=== PATIENT | female | born 1970 | race Caucasian/White ===

== ENCOUNTER 2016-11-09 13:58 | Inpatient (IN) | payer OTHER ==
[~2016-11-09] VITALS: Ht 167.6 cm; Wt 190.5 kg
--- NOTE | ~2016-11-09 | EKG ---
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
[2016-11-09 13:58] VITALS: BP 156/78
[~2016-11-09 13:58] MED LIST: ACETAMINOPHEN325 M1 PO; ADULT LOW DOSE81 MG PO; ALBUTEROL INH INH; ALLOPURINOL 30300 M1 PO; AZITHROMYCIN 2250 MG PO; BACTRIM DS TAB1 EACH; BACTRIM DS TAB1 EACH PO; CIPROFLOXACIN500 M1 PO; COLACE100 MG PO; DARVOCET-N 1001 EACH PO; FLAGYL500 MG PO; FLEXERIL PO; GLUCOPHAGE1000 MG PO; IBUPROFEN 800800 MG PO; INDOMETHACIN 5050 M1 PO; INDOMETHACIN 5050 MG PO; KEFLEX500 MG PO; LANTUS100 UNIT/M SUBQ; LEVOTHYROXIN0.025 MG; LEVOTHYROXIN0.125 M2 PO; LEVOXYL125 MCG PO; LEVOXYL137 MCG PO; LEVOXYL150 MCG PO; LIPITOR; LIPITOR 10 MG10 M1 PO; LIPITOR 20 MG T20 M1 PO; LISINOPRIL40 MG PO; LORTAB 5-500 T1 EAC1 PO; MACROBID 100 M100 M1 PO; MEDROLDOSEPACK PO; MICRONASE5 MG PO; NAPROSYN500 MG PO; NORCO 5-325 TA1 EACH PO; NORFLEX100 MG PO; NORVASC10 MG PO; ONDANSETRON HCL4 M2 PO; PERCOCET 5-3251 EACH PO; PHENERGAN 25 MG25 MG PO; PRILOSEC40 MG PO; PROAIR HFA8.5 GM IH; PROAIR HFA8.5 GM INH; SKELAXIN 800 M800 M1 PO; TESSALON200 MG PO; ZOFRAN ODT4 M1 PO; ZOFRAN ODT4 MG PO; ZOFRAN4 MG PO; ZPAK PO
[2016-11-09 14:34] LABS: HEMATOCRIT 42.8 % (37.0-47.0); MCH 35.8 pg (26.0-34.0); MCV 102.2 fL (80.0-100.0); PLATELET COUNT 77 thou/uL (150-400); RBC 4.19 mil/uL (4.20-5.00); RDW 13.4 % (10.5-14.5); WBC 12.8 thou/uL (4.0-11.0)
[2016-11-09 14:39] LABS: MANUAL DIFF YES
[2016-11-09 14:47] LABS: ANION GAP 11 mmol/L (7-16); BUN 10 mg/dL (7-18); CALCIUM 9.3 mg/dL (8.5-10.1); CHLORIDE 100 mmol/L (98-107); CO2 24 mmol/L (21-32); GLUCOSE 185 mg/dL (74-106); POTASSIUM 4.3 mmol/L (3.5-5.1); SODIUM 135 mmol/L (136-145)
[2016-11-09 14:58] LABS: ALBUMIN 3.6 g/dL (3.4-5.0); ALKALINE PHOSPHATASE 74 U/L (46-116); NT-PRO BRAIN NAT PEPTIDE 51 pg/mL (<300); SGOT 26 U/L (15-37); SGPT 31 U/L (30-65); TOTAL BILIRUBIN 1.2 mg/dL (<0.1-1.0); TOTAL PROTEIN 7.8 g/dL (6.4-8.2); TROPONIN-I < 0.04 ng/mL (<0.04-0.07)
[2016-11-09 15:01] LABS: ABSOLUTE NEUTROPHILS 11.4 thou/uL (1.4-8.2); PLATELET ESTIMATE DECREASED; TOTAL CELL COUNT 100
[2016-11-09 15:37] LABS: URINE BILIRUBIN NEGATIVE (Negative); URINE BLOOD 2+ (Negative); URINE COLOR YELLOW; URINE GLUCOSE-RANDOM* NEGATIVE (Negative); URINE KETONES NEGATIVE (Negative); URINE NITRITE POSITIVE (Negative); URINE PROTEIN (DIPSTICK) 3+ (Negative); URINE UROBILINOGEN 0.2 E.U./dl (0.2-1.0)
[2016-11-09 15:51] LABS: BACTERIA >30 Many /HPF (None Seen); CASTS None Seen /LPF (None Seen); CRYSTALS None Seen /LPF (None Seen); SQUAMOUS 4-10 Moderate /LPF (0-3); URINE RBC 0-2 Rare /HPF (0-2)
[2016-11-09 17:33] VITALS: BP 153/80
[2016-11-09 20:08] VITALS: BP 136/74
[2016-11-10] VITALS: BP 136/74
[2016-11-10 04:13] VITALS: BP 132/72
[2016-11-10 05:33] LABS: ABSOLUTE NEUTROPHILS 8.3 thou/uL (1.4-8.2); BASOPHILS 0.3 % (0.0-2.0); EOSINOPHILS 0.3 % (0.0-3.0); HEMATOCRIT 38.7 % (37.0-47.0); HEMOGLOBIN 13.7 gm/dL (12.0-15.0); MCH 35.9 pg (26.0-34.0); MCHC 35.2 g/dL (28.0-37.0); MCV 101.8 fL (80.0-100.0); MONOCYTES 6.8 % (1.0-8.0); PLATELET COUNT 70 thou/uL (150-400); POLYS 81.6 % (36.0-66.0); RBC 3.81 mil/uL (4.20-5.00); RDW 13.3 % (10.5-14.5); WBC 10.2 thou/uL (4.0-11.0)
[2016-11-10 05:37] LABS: MANUAL DIFF NO
[2016-11-10 06:04] LABS: CALCIUM 8.8 mg/dL (8.5-10.1); MAGNESIUM 1.3 mg/dL (1.8-2.4); POTASSIUM 3.7 mmol/L (3.5-5.1); TOTAL BILIRUBIN 1.1 mg/dL (<0.1-1.0)
[2016-11-10 08:00] VITALS: BP 117/71
[2016-11-10 16:00] VITALS: BP 110/64
[2016-11-10 20:44] VITALS: BP 140/72
[2016-11-11 03:10] VITALS: BP 123/63
[2016-11-11 05:28] LABS: ABSOLUTE NEUTROPHILS 3.5 thou/uL (1.4-8.2); BASOPHILS 0.7 % (0.0-2.0); HEMATOCRIT 36.7 % (37.0-47.0); LYMPHOCYTES 31.7 % (24.0-44.0); MCH 35.7 pg (26.0-34.0); MCHC 35.4 g/dL (28.0-37.0); MCV 100.9 fL (80.0-100.0); MONOCYTES 9.5 % (1.0-8.0); PLATELET COUNT 71 thou/uL (150-400); POLYS 56.1 % (36.0-66.0); RBC 3.64 mil/uL (4.20-5.00); RDW 13.6 % (10.5-14.5); WBC 6.3 thou/uL (4.0-11.0)
[2016-11-11 05:37] LABS: MANUAL DIFF NO
[2016-11-11 05:43] LABS: ALBUMIN 2.8 g/dL (3.4-5.0); CALCIUM 8.1 mg/dL (8.5-10.1); POTASSIUM 3.7 mmol/L (3.5-5.1); TOTAL BILIRUBIN 0.7 mg/dL (<0.1-1.0); TOTAL PROTEIN 6.7 g/dL (6.4-8.2)
[2016-11-11 07:51] VITALS: BP 137/76
[2016-11-11 15:52] VITALS: BP 143/76
[2016-11-11 19:37] VITALS: BP 139/65
[2016-11-12 04:34] VITALS: BP 131/68
[2016-11-12 05:57] LABS: BASOPHILS 0.9 % (0.0-2.0); EOSINOPHILS 2.3 % (0.0-3.0); HEMATOCRIT 38.4 % (37.0-47.0); HEMOGLOBIN 13.6 gm/dL (12.0-15.0); LYMPHOCYTES 39.9 % (24.0-44.0); MCH 35.6 pg (26.0-34.0); MCHC 35.3 g/dL (28.0-37.0); MCV 100.9 fL (80.0-100.0); MONOCYTES 8.8 % (1.0-8.0); PLATELET COUNT 83 thou/uL (150-400); POLYS 48.1 % (36.0-66.0); RBC 3.81 mil/uL (4.20-5.00); RDW 13.5 % (10.5-14.5); WBC 6.3 thou/uL (4.0-11.0)
[2016-11-12 06:06] LABS: MANUAL DIFF NO
[2016-11-12 06:09] LABS: ALBUMIN 2.9 g/dL (3.4-5.0); POTASSIUM 3.9 mmol/L (3.5-5.1); TOTAL BILIRUBIN 0.8 mg/dL (<0.1-1.0); TOTAL PROTEIN 6.9 g/dL (6.4-8.2)
[2016-11-12 08:42] VITALS: BP 127/70
[2016-11-12 15:20] VITALS: BP 127/48
[2016-11-12 20:00] VITALS: BP 165/91
[2016-11-13 04:00] VITALS: BP 134/81
[2016-11-13 08:00] VITALS: BP 129/61
[2016-11-13 12:50] VITALS: BP 134/81
[2016-11-13] MEDS ORDERED: DIFLUCAN200 MG PO (13:17)
== END 2016-11-13 13:52 | disposition home or self-care (01) | DRG 872 ==
LOC: ER 13:58 → 3N 15:57 → EROBS 15:57 → 3N 17:14
PROVIDERS: Internal Medicine Geriatric Medicine; Nurse Practitioner Family
DX: A41.9 Sepsis, unspecified organism (principal); N39.0 Urinary tract infection, site not specified; Z68.44 Body mass index [BMI] 60.0-69.9, adult; K83.0 Cholangitis; K80.10 Calculus of gallbladder with chronic cholecystitis without obstruction; N12 Tubulo-interstitial nephritis, not specified as acute or chronic; I10 Essential (primary) hypertension; E11.9 Type 2 diabetes mellitus without complications; E66.01 Morbid (severe) obesity due to excess calories; K75.81 Nonalcoholic steatohepatitis (NASH); K74.60 Unspecified cirrhosis of liver; M10.9 Gout, unspecified; D69.6 Thrombocytopenia, unspecified; E03.9 Hypothyroidism, unspecified; J45.909 Unspecified asthma, uncomplicated; Z79.899 Other long term (current) drug therapy; Z88.6 Allergy status to analgesic agent; Z88.1 Allergy status to other antibiotic agents; Z88.0 Allergy status to penicillin; Z79.4 Long term (current) use of insulin; Z87.440 Personal history of urinary (tract) infections; Z87.891 Personal history of nicotine dependence
CPT/HCPCS: 10094

== ENCOUNTER 2017-04-23 12:17 | Emergency (ER) | payer OTHER ==
[~2017-04-23] VITALS: Ht 170.2 cm; Wt 190.5 kg
[~2017-04-23 12:17] MED LIST changes: +DIFLUCAN200 MG PO
[2017-04-23 13:08] LABS: HEMATOCRIT 41.3 % (37.0-47.0); HEMOGLOBIN 14.6 gm/dL (12.0-15.0); MCH 35.8 pg (26.0-34.0); MCHC 35.4 g/dL (28.0-37.0); MCV 101.2 fL (80.0-100.0); RBC 4.08 mil/uL (4.20-5.00); RDW 13.5 % (10.5-14.5); WBC 5.8 thou/uL (4.0-11.0)
[2017-04-23 13:22] LABS: CALCIUM 9.5 mg/dL (8.5-10.1); CREATININE 1.1 mg/dL (0.6-1.0); POTASSIUM 3.8 mmol/L (3.5-5.1)
[2017-04-23] MEDS ORDERED: FLEXERIL PO (14:26)
[2017-04-23] MEDS ORDERED: OXYCODONE HCL 55 MG PO (14:26)
== END 2017-04-23 14:37 | disposition home or self-care (01) ==
LOC: ER 12:17
PROVIDERS: Emergency Medicine
DX: M54.9 Dorsalgia, unspecified (principal); Z04.3 Encounter for examination and observation following other accident; Z87.891 Personal history of nicotine dependence; Z88.5 Allergy status to narcotic agent; Z88.0 Allergy status to penicillin; Z88.1 Allergy status to other antibiotic agents

== ENCOUNTER 2017-07-04 17:49 | Inpatient (IN) | payer OTHER ==
[~2017-07-04] VITALS: Ht 167.6 cm; Wt 197.6 kg
--- NOTE | ~2017-07-04 | EKG ---
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 : 1970 Requested By: Pradip Robledo Order Number: [id number] MD: Dipak Arceo Measurements Intervals [place] Rate: 95 P: 50 MO: 189 QRS: -17 QRSD: 92 T: 94 QT: 347 QTc: 436 Interpretive Statements Sinus rhythm Borderline left axis deviation Low voltage, precordial leads Nonspecific T abnormalities, lateral leads Compared to ECG 11/09/2016 14:30:32 No significant change was found Electronically Signed On 07-05-2017 8:01:02 [facility] by Dipak Arceo [email or web address] <ELECTRONICALLY SIGNED> By: Dipak Arceo MD, [facility] 07/05/17 0801 1754 1754 Dipak Arceo MD, [facility] /EPI
--- NOTE | ~2017-07-04 | 2DMMODE ---
[facility] [address] [employer] [employer] [place] [address] 2 D/M-MODE ECHOCARDIOGRAM Name: [facility]ATALIB [facility] Room #: 428-P [facility] IN .R.#: [id number] Admission: 07/04/17 Attend Phys: Rico Peterson, Discharge: Date of : 72 Date of Service: 07/05/17 1534 Report #: [id number] THIS REPORT FOR: //name// APPROVED REPORT Study performed: 07/05/2017 14:38:28 EXAM: Comprehensive 2D, Doppler, and color-flow Echocardiogram Patient Location: Bedside Room #: 428 Status: routine BSA: 2.75 HR: 83 bpm BP: 149/71 mmHg Other Information Study Quality: Fair Indications Diabetes Chest Pain Hypertension/HDD Morbid obesity. Aortic Valve AoV Peak Kelby.: 1.71 m/s AO Peak Gr.: 11.65 mmHg LVOT Max P.73 mmHg LVOT Max V: 1.09 m/s Mitral Valve E/A Ratio: 1.4 MV Decel. Time: 226.44 ms MV E Max Kelby.: 1.44 m/s MV A Kelby.: 1.00 m/s MV PHT: 65.67 ms IVRT: 69.20 ms Pulmonary Valve PV Peak Kelby.: 1.06 m/s PV Peak Gr.: 4.49 mmHg Pulmonary Vein P Vein S: 0.77 m/s P Vein A: 0.30 m/s P Vein D: 0.71 m/s P Vein A Dur.: 101.5 msec P Vein S/D Ratio: 1.08 [facility] [address] [address] 2 D/M-MODE ECHOCARDIOGRAM Name: JACKSONTALIB Room #: 428-P ADM IN .R.#: [id number] Admission: 07/04/17 Attend Phys: Rico Peterson, Discharge: Date of : 72 Date of Service: 07/05/17 1534 Report #: [id number] Left Ventricle The left ventricle is normal size. Regional wall motion is not well visualized but grossly normal. There is normal left ventricular wall thickness. The left ventricular systolic function is normal. The left ventricular ejection fraction is within the normal range. LVEF is 55-60%. The left ventricular diastolic function is normal. Right Ventricle The right ventricle is normal size. The right ventricular systolic function is normal. Atria The left atrium size is normal. The right atrium size is normal. Aortic Valve The aortic valve is not well visualized. The aortic valve appears normal in structure. No aortic regurgitation is present. There is no aortic valvular stenosis. Mitral Valve The mitral valve is normal in structure. Trace mitral regurgitation. No evidence of mitral valve stenosis. Tricuspid Valve The tricuspid valve is normal in structure. There is no tricuspid valve regurgitation noted. Pulmonic Valve The pulmonary valve is normal in structure. There is no pulmonic valvular regurgitation. Great Vessels The aortic root is normal in size. IVC is not well visualized. Pericardium There is no pericardial effusion. <Conclusion> The left ventricular systolic function is normal. Regional wall motion is not well visualized but grossly normal. LVEF 55-60%. The aortic valve is not well visualized. Grossly normal in structure. No aortic regurgitation or stenosis The mitral valve is normal in structure. Trace mitral [facility] [address] [place] [address] 2 D/M-MODE ECHOCARDIOGRAM Name: TALIB JACKSON [facility] Room #: 428-P ADM IN M.R.#: [id number] Admission: 07/04/17 Attend Phys: Rico Peterson, Discharge: Date of : 72 Date of Service: 07/05/171533 Report #: [id number] regurgitation. Pulmonary artery pressure could not be reliably ascertained There is no pericardial effusion. <ELECTRONICALLY SIGNED> By: Dipak Arceo MD, FACC 07/05/17 1534 33 33 Dipak Arceo MD, FACC /INF
--- NOTE | ~2017-07-04 | HC ---
[facility] [place] [address] CONSULTATION Name: TALIB JACKSON Room #: 428-P DIS IN M.R.#: [id number] Admission: 07/04/17 Attend Phys: Rico Peterson MD Discharge: 07/08/17 Date of : 72 Report #: [id number] THIS REPORT FOR: //name// CC: FAM unknown Rico Peterson The patient of hospitalist, [facility], room 428. HISTORY OF PRESENT ILLNESS: A 47-year-old white female with morbid obesity and multiple medical problems. The patient states she is being treated for a urine infection and blood infection. She is admitted due to nausea and vomiting. 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 There is also a family history of hypothyroidism, occurring in the patient's father. The patient states she has had difficulty with obtaining appropriate levels of thyroid replacement most recently. Over the past months or even years, she has been on 150 mcg of replacement per day, but states that physicians have told her her levels were abnormal, although she does not know any of the numbers. Since admission, the patient was continued on 150 mcg of L-thyroxine generic per day and thyroid function studies have shown a TSH that has been within normal limits, although prior thyroid levels in the patient's chart from several years ago were generally exceedingly abnormal as high as 150 or more. The patient states she takes her thyroid 1 hour prior to eating or drinking anything and does not take it without any conflicting substances such as calcium, iron or vitamins. CURRENT MEDICATIONS: Include atorvastatin, glargine, amlodipine, lisinopril, lispro, levothyroxine as mentioned above, aspirin, pantoprazole, glyburide, allopurinol, acetaminophen, ondansetron, ciprofloxacin and possibly other medication. Otherwise, there is no pertinent thyroid history available. OBJECTIVE: LABORATORY DATA: As above. No free T4 is available, but TSH currently is reported to be 1.61 drawn earlier on this admission. PHYSICAL EXAMINATION: GENERAL: Morbidly obese 47-year-old white female who is somewhat emotionally labile, but in no acute distress. Height is reported to be 5 feet 6 inches, weight 416 pounds. VITAL SIGNS: The patient is afebrile, heart rate 96 and regular, blood pressure 120/80. SKIN: Warm and moist, but slightly doughy. EYES: There is no ophthalmopathy. MUSCULOSKELETAL: The weight is distributed both centrally and peripherally. NECK: The thyroid is slightly enlarged and firm without nodularity or adenopathy and it moves well with deglutition. Deep tendon reflexes are 2+ and [address] [address] CONSULTATION Name: TALIB JACKSON Room #: 428-P [facility] IN M.R.#: [id number] Admission: 07/04/17 Attend Phys: Rico Peterson MD Discharge: 07/08/17 Date of : 72 Report #: [id number] equal bilaterally and the remainder of the exam is euthyroid. ASSESSMENT: Hypothyroidism with the patient apparently having long-term difficulty in control. The patient's thyroid levels, however, are currently apparently within normal limits as documented by normal TSH. PLAN: Would suggest continuing current regimen with 150 mcg of L-thyroxine per day, not taken with any conflicting substances. Would then repeat thyroid function studies at intervals to ensure that the patient's levels remain normal. Thank you very much for this consultation. I will continue to follow the patient with you for treatment of thyroid disease. <ELECTRONICALLY SIGNED> By: Bill Dumont MD 07/08/17 2023 1421 0350 Bill Dumont MD /nt
--- NOTE | ~2017-07-04 | HC ---
[facility] [place] [address] CONSULTATION Name: TALIB DOLAN Room #: 428-P ADM IN M.R.#: [id number] Admission: 07/04/17 Attend Phys: Rico Peterson MD Discharge: Date of : 72 Report #: [id number] THIS REPORT FOR: //name// CC: FAM unknown Rico Peterson DATE OF SERVICE: 07/06/2017 CONSULTATION: Infectious Diseases. HISTORY OF PRESENT ILLNESS: Ms. Dolan is a 47-year-old white female admitted to [facility] on 07/04 complaining of chest pain and back pain. The patient says this was reminiscent of an episode she had a few years ago where she was diagnosed with bacteremia, pyelonephritis and sepsis. These symptoms were associated with nausea, vomiting, fevers and chills. With this last past history and some abnormal laboratory studies, the patient was admitted to the hospital. Infectious Diseases consultation was requested because of positive blood culture. PAST MEDICAL HISTORY: The patient has a history of diabetes with hypertension and hyperlipidemia. She is morbidly obese, weighing approximately 415 pounds. She has lost about 85 pounds in the last year and a half with dietary restriction. Other diagnosis includes gout. ALLERGIES: THE PATIENT NOTES ALLERGY TO PENICILLIN, CEPHALOSPORINS, DOXYCYCLINE, CODEINE AND DILAUDID. FAMILY HISTORY: Noncontributory. SOCIAL HISTORY: The patient is and lives with her . She did smoke cigarettes, but has cut way down. No history of alcohol. No history of injection drugs. The patient does smoke marijuana on occasion. She said she did do drugs, but never by injection during her youth. REVIEW OF SYSTEMS: The patient says she feels much better after being on antibiotics for 48 hours. The fevers have resolved. She no longer has chills, no sweats. The patient continued to have weakness and malaise, but this is improving. The patient denies headache, sinus congestion, drainage, sore throat, trouble swallowing. The patient denies cough, chest pain, shortness of breath. The nausea and vomiting have resolved. Her bowels are moving normally. Her belly pain has resolved. Her back pain has resolved. She has no pain in her extremities. PHYSICAL EXAMINATION: GENERAL: The patient appears her stated age, comfortable, oriented, not in any distress. [address] [address] CONSULTATION Name: TALIB DOLAN ELISABET Room #: 428-P [facility] IN M.R.#: [id number] Admission: 07/04/17 Attend Phys: Rico Peterson MD Discharge: Date of : 72 Report #: [id number] VITAL SIGNS: Show maximum measured temperature of 101.1. She has been afebrile for 24 hours. SKIN: Shows no rash, lesion nor exanthem. ENT: Negative. Oral cavity is normal. NECK: Supple. MENTATION: Appropriate. HEART: Sounds S1, S2. Breath sounds are diminished, but clear. I cannot appreciate any tenderness in the back nor flank. ABDOMEN: Belly is morbidly obese, soft, not tender. Bowel sounds are diminished. EXTREMITIES: Unremarkable. Good condition with obesity, but no venous stasis changes. The skin is intact. LABORATORY STUDIES: The white count was 11.4 on admission, is down to 6.7; hemoglobin 12.7; hematocrit 36%; platelets 66,000. Hemoglobin A1c is 6.8. The electrolytes, BUN, creatinine are normal. Glucose is 165. Liver function tests showed the SGOT is slightly elevated at 54, otherwise unremarkable. Lipase elevated at 508. Troponin was normal. The Radiology Department reports the chest x-ray is clear. CT scan showed cirrhosis of the liver with splenomegaly. There also were many gallstones, but no signs of active inflammation nor obstruction. Echocardiogram was unremarkable with preserved ejection fraction. The microbiology laboratory reports that the urine showed 15-25 white cells and E. coli on culture. This was resistant to ampicillin, Cipro and trimethoprim sulfa. One out of 2 blood cultures growing a gram-negative organism preliminarily identified as a pseudomonas species. SUMMARY: The patient who presents with fairly nonspecific symptoms, but includes fever. She does have some evidence of asymptomatic bacteriuria with a moderately resistant E. coli, but has 1 out of 2 blood cultures which has initially been identified as pseudomonas species. Additional findings include cirrhosis with splenomegaly, associated with slight elevation of the SGOT and low platelet count. At this time, we need to address the bacteremia. Pseudomonas tends to be resistant to the Rocephin, which she is currently receiving. I would like to change this to meropenem 1 gram IV every 8 hours. I would like to obtain followup blood cultures to see if the bacteremia has been persistent. We will wait for the final identification and susceptibility studies from the organism. The meropenem would also cover the E. coli in the urine. The patient does have cirrhosis on CT scan with signs of secondary portal hypertension and hypersplenism. Hepatitis A, B and C titers have been ordered. 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 I would encourage the patient to continue losing weight, possibly can consider more aggressive bariatric surgical procedure for her liver as well as her diabetes, back pain and other issues. The elevated lipase is notable. The patient does not demonstrate symptoms typical of pancreatitis. I would like to repeat the lipase with morning labs. For now, we will change antibiotics to meropenem. Repeat cultures and follow labs. I appreciate the opportunity of input in the care of the patient. I will be happy to follow her through the weekend until Dr. Duval returns on Saturday. Thank you for requesting Infectious Diseases input. <ELECTRONICALLY SIGNED> By: Haris Mchugh MD 07/08/17 0106 0920 2103 Haris Mchugh MD /nt
[~2017-07-04 17:49] MED LIST changes: +OXYCODONE HCL 55 MG PO
[2017-07-04 18:42] LABS: ABSOLUTE NEUTROPHILS 9.9 thou/uL (1.4-8.2); BASOPHILS 0.3 % (0.0-2.0); EOSINOPHILS 0.7 % (0.0-3.0); HEMATOCRIT 41.2 % (37.0-47.0); HEMOGLOBIN 14.4 gm/dL (12.0-15.0); MCH 35.1 pg (26.0-34.0); MCHC 34.8 g/dL (28.0-37.0); MCV 100.8 fL (80.0-100.0); MONOCYTES 4.1 % (1.0-8.0); POLYS 86.9 % (36.0-66.0); RBC 4.09 mil/uL (4.20-5.00); RDW 13.4 % (10.5-14.5); WBC 11.4 thou/uL (4.0-11.0)
[2017-07-04 18:47] LABS: ANION GAP 12 mmol/L (7-16); BUN 13 mg/dL (7-18); CALCIUM 9.5 mg/dL (8.5-10.1); CHLORIDE 101 mmol/L (98-107); CO2 26 mmol/L (21-32); CREATININE 1.1 mg/dL (0.6-1.0); GLUCOSE 218 mg/dL (74-106); POTASSIUM 4.2 mmol/L (3.5-5.1); SODIUM 139 mmol/L (136-145)
[2017-07-04 18:55] LABS: ALBUMIN 3.7 g/dL (3.4-5.0); LIPASE 508 U/L (73-393); SGOT 58 U/L (15-37); SGPT 57 U/L (30-65); TOTAL BILIRUBIN 0.9 mg/dL (<0.1-1.0); TOTAL PROTEIN 8.1 g/dL (6.4-8.2); TROPONIN-I < 0.04 ng/mL (<0.06)
[2017-07-04 19:13] LABS: PLATELET COUNT 80 thou/uL (150-400)
[2017-07-04 19:14] LABS: LARGE PLATELETS RARE
[2017-07-04 21:07] LABS: URINE BILIRUBIN 1+ (Negative); URINE BLOOD 3+ (Negative); URINE CLARITY CLEAR; URINE COLOR YELLOW; URINE GLUCOSE-RANDOM* NEGATIVE (Negative); URINE KETONES TRACE (Negative); URINE LEUKOCYTES-REFLEX NEGATIVE (Negative); URINE PROTEIN (DIPSTICK) 3+ (Negative); URINE SPECIFIC GRAVITY 1.025 (1.005-1.035); URINE UROBILINOGEN 0.2 E.U./dl (0.2-1.0)
[2017-07-04 21:09] LABS: URINE NITRITE-REFLEX POSITIVE (Negative)
[2017-07-04 21:10] LABS: ICTOTEST (BILI CONFIRMATORY) Negative (Negative)
[2017-07-04 21:21] LABS: CASTS None Seen /LPF (None Seen); CRYSTALS None Seen /LPF (None Seen); SQUAMOUS 0-3 Few /LPF (0-3); URINE RBC 0-2 Rare /HPF (0-2); URINE WBC-REFLEX 6-15 Few /HPF (0-5)
[2017-07-04 21:22] LABS: BACTERIA-REFLEX >30 Many /HPF (None Seen)
[2017-07-05 12:49] VITALS: BP 149/71
[2017-07-05 13:15] VITALS: BP 149/71
[2017-07-05 15:06] LABS: GLYCOHEMOGLOBIN (HGB A1C) 6.8 % (4.8-5.6)
[2017-07-05 20:00] VITALS: BP 130/65
[2017-07-06 04:30] VITALS: BP 144/82
[2017-07-06 07:15] VITALS: BP 149/96
[2017-07-06 07:45] VITALS: BP 100/65
[2017-07-06 11:50] LABS: HEMATOCRIT 36.5 % (37.0-47.0); HEMOGLOBIN 12.7 gm/dL (12.0-15.0); MCH 35.4 pg (26.0-34.0); MCHC 34.8 g/dL (28.0-37.0); MCV 101.9 fL (80.0-100.0); RBC 3.58 mil/uL (4.20-5.00); RDW 13.5 % (10.5-14.5); WBC 6.7 thou/uL (4.0-11.0)
[2017-07-06 12:03] LABS: INR 1.1; PROTIME 10.9 Seconds (9.3-11.4)
[2017-07-06 12:11] LABS: ALBUMIN 2.8 g/dL (3.4-5.0); POTASSIUM 3.9 mmol/L (3.5-5.1); TOTAL BILIRUBIN 1.2 mg/dL (<0.1-1.0); TOTAL PROTEIN 6.9 g/dL (6.4-8.2)
[2017-07-06 15:15] VITALS: BP 137/67
[2017-07-06 20:02] VITALS: BP 151/84
[2017-07-07] VITALS: BP 145/69
[2017-07-07 04:00] VITALS: BP 152/83
[2017-07-07 10:16] VITALS: BP 123/70
[2017-07-07 19:15] VITALS: BP 176/92
[2017-07-08 03:30] VITALS: BP 150/81
[2017-07-08 04:34] LABS: ABSOLUTE NEUTROPHILS 2.4 thou/uL (1.4-8.2); BASOPHILS 0.7 % (0.0-2.0); EOSINOPHILS 2.7 % (0.0-3.0); HEMATOCRIT 32.8 % (37.0-47.0); HEMOGLOBIN 11.5 gm/dL (12.0-15.0); LYMPHOCYTES 38.3 % (24.0-44.0); MCH 35.3 pg (26.0-34.0); MCHC 35.1 g/dL (28.0-37.0); MCV 100.6 fL (80.0-100.0); MONOCYTES 8.6 % (1.0-8.0); PLATELET COUNT 67 thou/uL (150-400); POLYS 49.7 % (36.0-66.0); RBC 3.26 mil/uL (4.20-5.00); RDW 13.7 % (10.5-14.5); WBC 4.9 thou/uL (4.0-11.0)
[2017-07-08 05:06] LABS: CALCIUM 7.8 mg/dL (8.5-10.1); CREATININE 0.8 mg/dL (0.6-1.0); POTASSIUM 3.3 mmol/L (3.5-5.1)
[2017-07-08 07:49] VITALS: BP 148/78
[2017-07-08] MEDS ORDERED: CIPRO250 M1 PO ×2 (14:53→15:39)
[2017-07-08] MEDS ORDERED: IBUPROFEN 400400 M2 PO (14:53)
[2017-07-08] MEDS ORDERED: PROBIOTIC1 EAC1 PO (14:58)
[2017-07-08 15:25] VITALS: BP 148/78
[2017-07-08] MEDS ORDERED: MONUROL3 GM PO (15:32)
[2017-07-08 16:07] LABS: HAV IgM AB (ANTI-HAV IgM) Negative (Negative); HEPATITIS B SURFACE AG Negative (Negative); HEPATITIS C VIRUS AB <0.1 (0.0-0.9)
== END 2017-07-08 16:44 | disposition home or self-care (01) | DRG 872 ==
LOC: ER 17:49 → EROBS 23:05 → 4E 07-05 13:28 → ENTRNSPT 07-08 15:49 → 4E 07-08 16:44
PROVIDERS: Emergency Medicine; Internal Medicine; Internal Medicine Infectious Disease; Nurse Practitioner Acute Care
DX: A41.52 Sepsis due to Pseudomonas (principal); N12 Tubulo-interstitial nephritis, not specified as acute or chronic; Z68.45 Body mass index [BMI] 70 or greater, adult; E11.9 Type 2 diabetes mellitus without complications; I10 Essential (primary) hypertension; M10.9 Gout, unspecified; E03.9 Hypothyroidism, unspecified; E66.01 Morbid (severe) obesity due to excess calories; E78.5 Hyperlipidemia, unspecified; F12.10 Cannabis abuse, uncomplicated; K80.20 Calculus of gallbladder without cholecystitis without obstruction; B96.5 Pseudomonas (aeruginosa) (mallei) (pseudomallei) as the cause of diseases classified elsewhere; B96.20 Unspecified Escherichia coli [E. coli] as the cause of diseases classified elsewhere; K74.60 Unspecified cirrhosis of liver; Z83.3 Family history of diabetes mellitus; Z88.0 Allergy status to penicillin; Z88.5 Allergy status to narcotic agent; Z88.1 Allergy status to other antibiotic agents; Z88.8 Allergy status to other drugs, medicaments and biological substances; Z87.891 Personal history of nicotine dependence
CPT/HCPCS: 10084

== ENCOUNTER 2017-09-05 15:17 | Emergency (ER) | payer OTHER ==
[~2017-09-05] VITALS: Ht 162.6 cm; Wt 187.8 kg
[~2017-09-05 15:17] MED LIST changes: +CIPRO250 M1 PO; +IBUPROFEN 400400 M2 PO; +MONUROL3 GM PO; +PROBIOTIC1 EAC1 PO
[2017-09-05] MEDS ORDERED: HYDROCODONE-AP1 EAC6 PO (16:00)
[2017-09-05] MEDS ORDERED: INDOMETHACIN 2525 MG PO (16:01)
== END 2017-09-05 16:14 | disposition home or self-care (01) ==
LOC: ER 15:17
DX: M79.672 Pain in left foot (principal); I10 Essential (primary) hypertension; E11.9 Type 2 diabetes mellitus without complications; M10.9 Gout, unspecified; E03.9 Hypothyroidism, unspecified; E66.01 Morbid (severe) obesity due to excess calories

== ENCOUNTER 2017-11-20 10:49 | Emergency (ER) | payer OTHER ==
[~2017-11-20] VITALS: Ht 167.6 cm; Wt 188.2 kg
[~2017-11-20 10:49] MED LIST changes: +HYDROCODONE-AP1 EAC6 PO; +INDOMETHACIN 2525 MG PO
[2017-11-20] MEDS ORDERED: IBUPROFEN 400400 M1 PO (12:37)
== END 2017-11-20 12:50 | disposition home or self-care (01) ==
LOC: ER 10:49
DX: M25.511 Pain in right shoulder (principal); E66.01 Morbid (severe) obesity due to excess calories; E11.9 Type 2 diabetes mellitus without complications; I10 Essential (primary) hypertension; M10.9 Gout, unspecified; E03.9 Hypothyroidism, unspecified; Z68.45 Body mass index [BMI] 70 or greater, adult; Z87.891 Personal history of nicotine dependence; Z88.1 Allergy status to other antibiotic agents; Z88.5 Allergy status to narcotic agent; Z88.0 Allergy status to penicillin; Z88.8 Allergy status to other drugs, medicaments and biological substances; Z79.4 Long term (current) use of insulin

== ENCOUNTER 2020-03-01 13:46 | Emergency (ER) | payer OTHER ==
[~2020-03-01] VITALS: Ht 167.6 cm; Wt 188.7 kg
[~2020-03-01 13:46] MED LIST changes: +IBUPROFEN 400400 M1 PO; +LEVOTHYROXINE100 MC1 PO; -LEVOXYL150 MCG PO
[2020-03-01 13:48] VITALS: BP 153/71
[2020-03-01 14:26] LABS: ABSOLUTE NEUTROPHILS 3.7 thou/uL (1.4-8.2); BASOPHILS 0.9 % (0.0-2.0); EOSINOPHILS 1.8 % (0.0-3.0); HEMATOCRIT 31.6 % (37.0-47.0); HEMOGLOBIN 10.6 gm/dL (12.0-15.0); LYMPHOCYTES 14.9 % (24.0-44.0); MCH 31.8 pg (26.0-34.0); MCHC 33.5 g/dL (28.0-37.0); MCV 95.2 fL (80.0-100.0); MONOCYTES 7.6 % (1.0-8.0); PLATELET COUNT 122 thou/uL (150-400); POLYS 74.8 % (36.0-66.0); RBC 3.32 mil/uL (4.20-5.00); RDW 16.4 % (10.5-14.5); WBC 4.9 thou/uL (4.0-11.0)
[2020-03-01 14:28] LABS: ANION GAP 10 mmol/L (7-16); BUN 34 mg/dL (7-18); CALCIUM 8.3 mg/dL (8.5-10.1); CHLORIDE 104 mmol/L (98-107); CO2 26 mmol/L (21-32); GLUCOSE 247 mg/dL (74-106); POTASSIUM 4.2 mmol/L (3.5-5.1); SODIUM 140 mmol/L (136-145)
[2020-03-01 14:38] LABS: ALBUMIN 2.9 g/dL (3.4-5.0); SGOT 19 U/L (15-37); SGPT 14 U/L (30-65); TOTAL BILIRUBIN 0.7 mg/dL (0.2-1.0); TOTAL PROTEIN 7.1 g/dL (6.4-8.2); TROPONIN-I <0.06 ng/mL (<0.06)
--- NOTE | 2020-03-01 14:51 | EKG ---
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1970 Requested By: Luiz Fisher Order Number: [id number] MD: Kristian Oneal Measurements Intervals [place] Rate: 85 P: 37 NC: 186 QRS: -20 QRSD: 101 T: 89 QT: 391 QTc: 465 Interpretive Statements Sinus rhythm Low voltage, precordial leads Compared to ECG 07/04/2017 17:54:27 T-wave abnormality no longer present Electronically Signed On 03-01-2020 14:51:21 SALES TECHNICIAN by Kristian Oneal [email or web address] <ELECTRONICALLY SIGNED> By: Kristian Oneal MD, FACC 03/01/20 1451 1354 135 Kristian Oneal MD, [facility] /EPI
[2020-03-01 16:16] LABS: PROTIME 10.2 Seconds (9.3-11.4)
[2020-03-01 21:22] LABS: TOTAL PROTEIN 6.5 g/dL (6.4-8.2)
[2020-03-01 21:51] LABS: TSH 4.781 uIU/mL (0.358-3.740)
--- NOTE | 2020-03-01 22:30 | NUR ---
Pt upset due to ER bed being too uncomfortable, wants a hospital bed. 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 Pt reports she asked for hospital bed earlier but nobody brought her a more comfortable bed, when I offered to give her one pt refused and told me she no longer wanted a bed and she wanted to go home. Pt was hungry and was given a food box but was no longer comfortable
[2020-03-01 22:36] VITALS: BP 127/54
== END 2020-03-01 22:38 | disposition left against medical advice (07) ==
LOC: ER 13:46 → EROBS 16:42 → ER 16:42
PROVIDERS: Emergency Medicine; Internal Medicine; Nurse Practitioner
DX: N17.9 Acute kidney failure, unspecified (principal); R10.13 Epigastric pain; E66.01 Morbid (severe) obesity due to excess calories; I10 Essential (primary) hypertension; E11.9 Type 2 diabetes mellitus without complications; E03.9 Hypothyroidism, unspecified; M10.9 Gout, unspecified; Z68.44 Body mass index [BMI] 60.0-69.9, adult; Z79.1 Long term (current) use of non-steroidal anti-inflammatories (NSAID); Z79.4 Long term (current) use of insulin; Z79.899 Other long term (current) drug therapy; Z79.82 Long term (current) use of aspirin; Z87.891 Personal history of nicotine dependence; Z88.1 Allergy status to other antibiotic agents; Z88.0 Allergy status to penicillin; Z88.5 Allergy status to narcotic agent